=== PATIENT | female | born 1995 | race Caucasian/White ===

== ENCOUNTER 2021-07-07 08:00 | Outpatient (RCR) | payer OTHER ==
[2021-07-01 10:22] VITALS: BP 137/72; PULSE 88; TEMP 98.6
--- NOTE | 2021-07-01 12:25 | NUR ---
Pt remained in dept following initial iron infusion, no issues during or following infusion or s/s of reaction. INT DC'd with catheter intact, and pt ambulates out from dept.
[2021-07-05 08:12] VITALS: BP 102/66; PULSE 84; TEMP 98.4
[~2021-07-07] VITALS: Ht 167.6 cm; Wt 93.3 kg
[~2021-07-07 08:00] MED LIST: ZOFRAN ODT8 MG PO
[2021-07-07 08:33] VITALS: BP 97/64; PULSE 91; TEMP 98.5
== END 2021-07-07 10:04 | disposition home or self-care (01) ==
LOC: EUO 08:00
DX: D50.9 Iron deficiency anemia, unspecified (principal)
CPT/HCPCS: J1756; J7050